=== PATIENT | female | born 1930 | race Asian ===

== ENCOUNTER 2018-05-25 13:32 | Inpatient (IN) | payer MEDICARE, OTHER ==
[~2018-05-25] VITALS: Ht 154.9 cm; Wt 60.9 kg
[~2018-05-25 13:32] MED LIST: AMLO2.5T2 PO; ASA5EC PO; ATOR10TA PO; DONE5TAB7 PO; FAMO20TA8 PO; GLIM4TAB2 PO; MECL-109 PO; MULT-1146 PO; OLME40TA11 PO
[2018-05-25] MEDS ORDERED: SODIUM CHLORIDE 0.9% 1,000 ML IV ONE (14:47)
[2018-05-25 16:30] LABS: CHLORIDE 105 mEq/L (98-107)
[2018-05-25 16:32] LABS: BASOPHILS % 0.5 % (0.0-2.0); EOSINOPHILS % 0.1 % (0.0-5.0); HEMATOCRIT. 33.7 % (36.0-48.0); HEMOGLOBIN. 11.2 g/dL (12.0-16.0); LYMPHOCYTES % 9.2 % (20.0-50.0); MEAN CORPUSCULAR VOLUME 99.8 fL (81.0-99.0); MEAN PLATELET VOLUME 7.7 fl (7.4-10.4); MONOCYTES % 11.7 % (2.0-8.0); NEUTROPHILS % 78.5 % (40.0-76.0); PLATELET 125 x1000/uL (130-400); RED BLOOD CELL COUNT 3.38 mill/uL (4.2-5.4); RED CELL DISTRIBUTION WIDTH 14.3 % (11.6-14.6)
[2018-05-25 16:34] LABS: INR 1.2; PROTHROMBIN TIME 11.6 sec (9.1-11.1)
[2018-05-25] MEDS ORDERED: ASPIRIN 81MG TABLET PO ONE (17:15)
[2018-05-25 18:18] LABS: CLARITY URINE CLEAR (CLEAR); COLOR URINE YELLOW (YELLOW); KETONES URINE NEGATIVE (NEGATIVE); LEUKOCYTE ESTERASE URINE NEGATIVE (NEGATIVE); NITRITE URINE NEGATIVE (NEGATIVE); OCCULT BLOOD URINE NEGATIVE (NEGATIVE); PH URINE 6.5 (4.5-8.0); PROTEIN URINE 1+ (NEGATIVE); SPECIFIC GRAVITY URINE 1.018 (1.005-1.030)
[2018-05-25 21:30] VITALS: BP 129/70
[2018-05-25] MEDS ORDERED: SODIUM CHLORIDE 10% FOR INH 15ML VIAL NEB INH SCH (21:45)
[2018-05-25] MEDS ORDERED: INSULIN GLARGINE UD 100 UNITS/ML SYR SUBCUT SCH ×2 (22:00→22:45)
[2018-05-25] MEDS ORDERED: METO25TA6 PO (22:32)
[2018-05-25] MEDS ORDERED: GUAIFENESIN/DM 600MG/30MG ER TAB 12HR PO PRN (23:00)
[2018-05-26 04:00] VITALS: BP 128/82
[2018-05-26] MEDS ORDERED: SODIUM CHLORIDE 10% FOR INH 15ML VIAL NEB INH SCH (04:00)
[2018-05-26] MEDS: METOPROLOL TARTRATE 50MG TABLET PO SCH ×2 (06:40→19:00)
[2018-05-26] MEDS: INSULIN LISPRO 100 UNITS/ML SUBCUT SCH ×6 (06:45→18:25)
[2018-05-26 06:51] LABS: CHLORIDE 100 mEq/L (98-107)
[2018-05-26] MEDS: BLOOD SUGAR DIAGNOSTIC STRIP TEST SCH ×4 (06:55→21:17)
[2018-05-26 07:06] LABS: HEMATOCRIT. 36.3 % (36.0-48.0); MEAN CORPUSCULAR HEMOGLOBIN 32.6 pg (28.0-32.0); MEAN CORPUSCULAR VOLUME 98.8 fL (81.0-99.0); PLATELET 127 x1000/uL (130-400); RED BLOOD CELL COUNT 3.68 mill/uL (4.2-5.4); RED CELL DISTRIBUTION WIDTH 14.2 % (11.6-14.6)
[2018-05-26 07:07] LABS: T4 FREE 1.68 ng/dL (0.76-1.46)
[2018-05-26] MEDS ORDERED: INSULIN LISPRO 100 UNITS/ML SUBCUT SCH ×2 (07:50)
[2018-05-26 08:00] VITALS: BP_SYST 131; BP_SYST 157; BP_DIAS 73; BP_DIAS 82
[2018-05-26] MEDS: GUAIFENESIN/DM 600MG/30MG ER TAB 12HR PO SCH ×2 (08:44→20:53)
[2018-05-26] MEDS: ASPIRIN 325MG EC TABLET PO SCH (08:44)
[2018-05-26] MEDS: CLOPIDOGREL 75MG TABLET PO SCH (08:44)
[2018-05-26] MEDS: LOSARTAN POTASSIUM 100 MG TABLET PO SCH (08:45)
[2018-05-26] MEDS: FAMOTIDINE 20MG TABLET PO SCH (08:45)
[2018-05-26] MEDS ORDERED: BLOOD SUGAR DIAGNOSTIC STRIP TEST SCH (09:00)
[2018-05-26] MEDS ORDERED: FAMOTIDINE 20MG TABLET PO SCH (09:00)
[2018-05-26 10:50] LABS: PLATELET ESTIMATE SLIGHTLY DECREASED
[2018-05-26 12:00] VITALS: BP 150/71
[2018-05-26] MEDS ORDERED: CLONIDINE 0.2MG TABLET PO PRN (15:15)
[2018-05-26] MEDS ORDERED: CLONIDINE 0.1MG TABLET PO PRN (15:15)
[2018-05-26 16:00] VITALS: BP 135/75
[2018-05-26 17:21] LABS: ETHANOL BLOOD < 10 mg/dL
[2018-05-26 17:26] LABS: T4 FREE 1.52 ng/dL (0.76-1.46)
[2018-05-26 17:37] LABS: FOLIC ACID (FOLATE) SERUM >20 ng/mL ng/mL (>5.38)
[2018-05-26 17:48] LABS: VITAMIN B12 SERUM 1677 pg/mL (211-911)
[2018-05-26 20:00] VITALS: BP 156/81
[2018-05-26] MEDS: ATORVASTATIN CALCIUM 10MG TABLET PO SCH (20:54)
[2018-05-26] MEDS ORDERED: ATORVASTATIN CALCIUM 10MG TABLET PO SCH (21:00)
[2018-05-26] MEDS ORDERED: INSULIN GLARGINE UD 100 UNITS/ML SYR SUBCUT SCH (22:00)
[2018-05-26 22:49] LABS: *AMPHETAMINES SCREEN URINE NEGATIVE (NEGATIVE); *BARBITURATES SCREEN URINE NEGATIVE (NEGATIVE); *BENZODIAZEPINES SCREEN URINE NEGATIVE (NEGATIVE); *COCAINE SCREEN URINE NEGATIVE (NEGATIVE); METHADONE URINE SCREEN NEGATIVE (NEGATIVE); OPIATES URINE SCREEN NEGATIVE (NEGATIVE)
[2018-05-26] MEDS: INSULIN GLARGINE UD 100 UNITS/ML SYR SUBCUT SCH (22:49)
[2018-05-26 22:50] LABS: CANNABINOID URINE SCREEN NEGATIVE (NEGATIVE); PHENCYCLIDINE URINE SCREEN NEGATIVE (NEGATIVE)
[2018-05-27] VITALS: BP 127/75
[2018-05-27 04:00] VITALS: BP 123/74
[2018-05-27] MEDS: METOPROLOL TARTRATE 50MG TABLET PO SCH ×2 (05:19→17:50)
[2018-05-27] MEDS: INSULIN LISPRO 100 UNITS/ML SUBCUT SCH ×6 (06:14→17:58)
[2018-05-27] MEDS: BLOOD SUGAR DIAGNOSTIC STRIP TEST SCH ×4 (06:14→21:00)
[2018-05-27] MEDS: IPRATROPIUM/ALBUTEROL 0.5-3(2.5)MG/3ML NEB HHN SCH ×2 (07:18→20:42)
[2018-05-27 07:40] LABS: CHLORIDE 100 mEq/L (98-107)
[2018-05-27 07:48] LABS: PHOSPHORUS 3.7 mg/dL (2.5-4.9)
[2018-05-27 08:00] VITALS: BP_SYST 115; BP_SYST 140; BP_DIAS 62; BP_DIAS 64
[2018-05-27 08:15] LABS: HEMATOCRIT. 37.1 % (36.0-48.0); HEMOGLOBIN. 12.1 g/dL (12.0-16.0); MEAN CORPUSCULAR HEMOGLOBIN 32.3 pg (28.0-32.0); MEAN CORPUSCULAR VOLUME 98.5 fL (81.0-99.0); PLATELET 117 x1000/uL (130-400); RED BLOOD CELL COUNT 3.76 mill/uL (4.2-5.4)
[2018-05-27] MEDS: LOSARTAN POTASSIUM 100 MG TABLET PO SCH (09:29)
[2018-05-27] MEDS: CLOPIDOGREL 75MG TABLET PO SCH (09:29)
[2018-05-27] MEDS: GUAIFENESIN/DM 600MG/30MG ER TAB 12HR PO SCH ×2 (09:29→20:28)
[2018-05-27] MEDS: FAMOTIDINE 20MG TABLET PO SCH (09:29)
[2018-05-27] MEDS: ASPIRIN 325MG EC TABLET PO SCH (09:29)
[2018-05-27 12:00] VITALS: BP 115/73
[2018-05-27 20:00] VITALS: BP_SYST 114; BP_SYST 91; BP_DIAS 58; BP_DIAS 69
[2018-05-27] MEDS: ATORVASTATIN CALCIUM 10MG TABLET PO SCH (20:27)
[2018-05-27] MEDS: INSULIN GLARGINE UD 100 UNITS/ML SYR SUBCUT SCH (22:02)
[2018-05-28] VITALS: BP_SYST 122; BP_SYST 124; BP_DIAS 71; BP_DIAS 76
[2018-05-28] MEDS: IPRATROPIUM/ALBUTEROL 0.5-3(2.5)MG/3ML NEB HHN SCH ×3 (01:08→22:45)
[2018-05-28 04:00] VITALS: BP 90/45
[2018-05-28] MEDS: METOPROLOL TARTRATE 50MG TABLET PO SCH (05:32)
[2018-05-28 06:20] LABS: PLATELET ESTIMATE SLIGHTLY DECREASED
[2018-05-28] MEDS: INSULIN LISPRO 100 UNITS/ML SUBCUT SCH ×6 (06:31→16:43)
[2018-05-28] MEDS: BLOOD SUGAR DIAGNOSTIC STRIP TEST SCH ×4 (06:31→21:28)
[2018-05-28 07:33] LABS: HEMATOCRIT. 36.4 % (36.0-48.0); HEMOGLOBIN. 11.9 g/dL (12.0-16.0); MEAN CORPUSCULAR HEMOGLOBIN 32.7 pg (28.0-32.0); MEAN CORPUSCULAR VOLUME 99.8 fL (81.0-99.0); PLATELET 101 x1000/uL (130-400); RED BLOOD CELL COUNT 3.64 mill/uL (4.2-5.4); RED CELL DISTRIBUTION WIDTH 13.9 % (11.6-14.6)
[2018-05-28 08:00] VITALS: BP_SYST 109; BP_SYST 121; BP_SYST 86; BP_DIAS 42; BP_DIAS 61; BP_DIAS 74
[2018-05-28] MEDS: GUAIFENESIN/DM 600MG/30MG ER TAB 12HR PO SCH ×2 (09:16→21:22)
[2018-05-28] MEDS: LOSARTAN POTASSIUM 100 MG TABLET PO SCH (09:16)
[2018-05-28] MEDS: ASPIRIN 325MG EC TABLET PO SCH (09:16)
[2018-05-28] MEDS: FAMOTIDINE 20MG TABLET PO SCH (09:16)
[2018-05-28] MEDS: CLOPIDOGREL 75MG TABLET PO SCH (09:16)
[2018-05-28 11:21] LABS: PLATELET ESTIMATE DECREASED
[2018-05-28 12:00] VITALS: BP 117/35
[2018-05-28] MEDS ORDERED: POTASSIUM CHLORIDE 20MEQ/PACKET PO SCH (13:00)
[2018-05-28] MEDS: LOSARTAN POTASSIUM 25 MG TABLET PO SCH (13:00)
[2018-05-28 16:00] VITALS: BP 99/41
[2018-05-28] MEDS: METOPROLOL TARTRATE 25MG TABLET PO SCH (18:00)
[2018-05-28] MEDS ORDERED: PIPERACILLIN/TAZ 3.375G PREMIX 50 ML IV SCH (19:00)
[2018-05-28 20:00] VITALS: BP 110/74
[2018-05-28] MEDS: ATORVASTATIN CALCIUM 10MG TABLET PO SCH (21:22)
[2018-05-28] MEDS: PIPERACILLIN/TAZ 2.25G PREMIX 50 ML IV SCH (21:28)
[2018-05-28] MEDS: INSULIN GLARGINE UD 100 UNITS/ML SYR SUBCUT SCH (21:52)
[2018-05-29] VITALS: BP_SYST 104; BP_SYST 88; BP_DIAS 43; BP_DIAS 50
[2018-05-29] MEDS: PIPERACILLIN/TAZ 2.25G PREMIX 50 ML IV SCH ×4 (02:29→21:08)
[2018-05-29 04:00] VITALS: BP 99/48
[2018-05-29] MEDS: METOPROLOL TARTRATE 25MG TABLET PO SCH ×2 (05:50→18:00)
[2018-05-29] MEDS: BLOOD SUGAR DIAGNOSTIC STRIP TEST SCH ×4 (06:23→21:09)
[2018-05-29] MEDS: INSULIN LISPRO 100 UNITS/ML SUBCUT SCH ×6 (06:24→16:45)
[2018-05-29 08:00] VITALS: BP 95/47
[2018-05-29] MEDS: GUAIFENESIN/DM 600MG/30MG ER TAB 12HR PO SCH ×2 (08:28→21:08)
[2018-05-29] MEDS: CLOPIDOGREL 75MG TABLET PO SCH (08:29)
[2018-05-29] MEDS: FAMOTIDINE 20MG TABLET PO SCH (08:29)
[2018-05-29] MEDS: LOSARTAN POTASSIUM 25 MG TABLET PO SCH (08:29)
[2018-05-29] MEDS: ASPIRIN 325MG EC TABLET PO SCH (08:29)
[2018-05-29] MEDS ORDERED: ACETAMINOPHEN 650MG/20.3ML UDC PO PRN (09:45)
[2018-05-29 10:12] LABS: BASOPHILS % 0.3 % (0.0-2.0); HEMOGLOBIN. 12.6 g/dL (12.0-16.0); LYMPHOCYTES % 26.8 % (20.0-50.0); MEAN CORPUSCULAR HEMOGLOBIN 32.6 pg (28.0-32.0); MEAN CORPUSCULAR VOLUME 98.5 fL (81.0-99.0); MEAN PLATELET VOLUME 9.2 fl (7.4-10.4); MONOCYTES % 12.9 % (2.0-8.0); PLATELET 88 x1000/uL (130-400); RED BLOOD CELL COUNT 3.86 mill/uL (4.2-5.4); RED CELL DISTRIBUTION WIDTH 14.5 % (11.6-14.6)
[2018-05-29 10:51] LABS: PHOSPHORUS 3.9 mg/dL (2.5-4.9)
[2018-05-29] MEDS: IPRATROPIUM/ALBUTEROL 0.5-3(2.5)MG/3ML NEB HHN SCH ×2 (11:51→21:55)
[2018-05-29 12:00] VITALS: BP 88/40
[2018-05-29 16:00] VITALS: BP 98/55
[2018-05-29 20:00] VITALS: BP 101/54
[2018-05-29] MEDS: ATORVASTATIN CALCIUM 10MG TABLET PO SCH (21:08)
[2018-05-29] MEDS: INSULIN GLARGINE UD 100 UNITS/ML SYR SUBCUT SCH (21:09)
[2018-05-30] VITALS: BP 101/60
[2018-05-30] MEDS: PIPERACILLIN/TAZ 2.25G PREMIX 50 ML IV SCH ×4 (01:56→20:34)
[2018-05-30 04:00] VITALS: BP 100/55
[2018-05-30] MEDS: METOPROLOL TARTRATE 25MG TABLET PO SCH (06:00)
[2018-05-30] MEDS: BLOOD SUGAR DIAGNOSTIC STRIP TEST SCH ×4 (06:04→21:00)
[2018-05-30] MEDS: INSULIN LISPRO 100 UNITS/ML SUBCUT SCH ×6 (06:05→16:45)
[2018-05-30 07:31] LABS: HEMATOCRIT. 36.1 % (36.0-48.0); HEMOGLOBIN. 11.8 g/dL (12.0-16.0); MEAN CORPUSCULAR HEMOGLOBIN 32.1 pg (28.0-32.0); MEAN CORPUSCULAR VOLUME 98.6 fL (81.0-99.0); PLATELET 84 x1000/uL (130-400); RED BLOOD CELL COUNT 3.66 mill/uL (4.2-5.4); RED CELL DISTRIBUTION WIDTH 14.3 % (11.6-14.6)
[2018-05-30 07:40] LABS: PHOSPHORUS 3.3 mg/dL (2.5-4.9)
[2018-05-30 08:00] VITALS: BP 106/61
[2018-05-30] MEDS: IPRATROPIUM/ALBUTEROL 0.5-3(2.5)MG/3ML NEB HHN SCH ×3 (08:00→21:35)
[2018-05-30] MEDS: LOSARTAN POTASSIUM 25 MG TABLET PO SCH (09:00)
[2018-05-30] MEDS: CLOPIDOGREL 75MG TABLET PO SCH (09:15)
[2018-05-30] MEDS: ASPIRIN 325MG EC TABLET PO SCH (09:15)
[2018-05-30] MEDS: FAMOTIDINE 20MG TABLET PO SCH (09:15)
[2018-05-30] MEDS: GUAIFENESIN/DM 600MG/30MG ER TAB 12HR PO SCH ×2 (09:15→22:55)
[2018-05-30 10:03] LABS: PLATELET ESTIMATE DECREASED
[2018-05-30 10:27] LABS: BG BASE EXCESS 1.3 mmol/L (-2.0-2.0); BG CARBOXYHEMOGLOBIN 0.3 % (0.5-1.5); BG DEOXYHEMOGLOBIN 4.8 % (0.0-5.0); BG FRACTION INSPIRED OXYGEN 28; BG HCO3 ACT 24.3 mmol/L (22.0-26.0); BG METHEMOGLOBIN 0.1 % (0.0-1.5); BG OXYGEN SATURATION 95.2 % (92.0-98.5); BG OXYHEMOGLOBIN 94.8 % (94.0-97.0); BG PCO2 33.4 mmHg (35.0-45.0); BG PO2 75.9 mmHg (75.0-100.0); BG SAMPLE SITE RIGHT RADIAL; BG TOTAL HEMOGLOBIN 12.3 g/dL (12.0-18.0); BG VENT MODE NASAL CANNULA
[2018-05-30] MEDS: CARVEDILOL 3.125 MG TABLET PO SCH ×2 (12:15→21:00)
[2018-05-30 20:00] VITALS: BP_SYST 101; BP_SYST 98; BP_DIAS 43; BP_DIAS 47
[2018-05-30] MEDS: ATORVASTATIN CALCIUM 10MG TABLET PO SCH (22:55)
[2018-05-30] MEDS: INSULIN GLARGINE UD 100 UNITS/ML SYR SUBCUT SCH (23:01)
[2018-05-31] VITALS: BP 111/63
[2018-05-31] MEDS: PIPERACILLIN/TAZ 2.25G PREMIX 50 ML IV SCH ×4 (02:56→21:37)
[2018-05-31 04:00] VITALS: BP 112/66
[2018-05-31] MEDS: BLOOD SUGAR DIAGNOSTIC STRIP TEST SCH ×4 (06:41→20:50)
[2018-05-31] MEDS: INSULIN LISPRO 100 UNITS/ML SUBCUT SCH ×5 (06:42→16:45)
[2018-05-31 07:20] LABS: BASOPHILS % 0.7 % (0.0-2.0); EOSINOPHILS % 0.2 % (0.0-5.0); HEMATOCRIT. 38.6 % (36.0-48.0); HEMOGLOBIN. 12.6 g/dL (12.0-16.0); MEAN CORPUSCULAR HEMOGLOBIN 32.2 pg (28.0-32.0); MEAN PLATELET VOLUME 9.8 fl (7.4-10.4); MONOCYTES % 14.3 % (2.0-8.0); NEUTROPHILS % 51.8 % (40.0-76.0); PLATELET 89 x1000/uL (130-400)
[2018-05-31 08:00] VITALS: BP 117/76
[2018-05-31] MEDS: IPRATROPIUM/ALBUTEROL 0.5-3(2.5)MG/3ML NEB HHN SCH ×3 (08:53→22:22)
[2018-05-31] MEDS: LOSARTAN POTASSIUM 25 MG TABLET PO SCH (09:00)
[2018-05-31] MEDS: CARVEDILOL 3.125 MG TABLET PO SCH ×2 (09:21→21:38)
[2018-05-31] MEDS: ASPIRIN 325MG EC TABLET PO SCH (09:21)
[2018-05-31] MEDS: FAMOTIDINE 20MG TABLET PO SCH (09:21)
[2018-05-31] MEDS: CLOPIDOGREL 75MG TABLET PO SCH (09:23)
[2018-05-31] MEDS: GUAIFENESIN/DM 600MG/30MG ER TAB 12HR PO SCH ×2 (11:09→21:37)
[2018-05-31] MEDS ORDERED: POTASSIUM CHLORIDE 20MEQ TABLET SR PO NR (11:30)
[2018-05-31 12:00] VITALS: BP 100/51
[2018-05-31 16:00] VITALS: BP 96/58
[2018-05-31 20:00] VITALS: BP 105/63
[2018-05-31] MEDS: INSULIN GLARGINE UD 100 UNITS/ML SYR SUBCUT SCH (20:59)
[2018-05-31] MEDS: ATORVASTATIN CALCIUM 10MG TABLET PO SCH (21:37)
[2018-06-01] VITALS: BP 140/86
[2018-06-01] MEDS: PIPERACILLIN/TAZ 2.25G PREMIX 50 ML IV SCH ×4 (02:39→21:42)
[2018-06-01 04:00] VITALS: BP 158/80
[2018-06-01] MEDS: INSULIN LISPRO 100 UNITS/ML SUBCUT SCH ×6 (06:45→16:45)
[2018-06-01] MEDS: BLOOD SUGAR DIAGNOSTIC STRIP TEST SCH ×4 (07:15→21:42)
[2018-06-01 08:00] VITALS: BP 152/83
[2018-06-01] MEDS: CLOPIDOGREL 75MG TABLET PO SCH (09:21)
[2018-06-01] MEDS: GUAIFENESIN/DM 600MG/30MG ER TAB 12HR PO SCH ×2 (09:21→21:42)
[2018-06-01] MEDS: ASPIRIN 325MG EC TABLET PO SCH (09:22)
[2018-06-01] MEDS: FAMOTIDINE 20MG TABLET PO SCH (09:22)
[2018-06-01] MEDS: LOSARTAN POTASSIUM 25 MG TABLET PO SCH (09:22)
[2018-06-01] MEDS: CARVEDILOL 3.125 MG TABLET PO SCH ×2 (09:23→21:42)
[2018-06-01 09:57] LABS: HEMATOCRIT. 38.3 % (36.0-48.0); HEMOGLOBIN. 12.3 g/dL (12.0-16.0); MEAN CORPUSCULAR HEMOGLOBIN 31.7 pg (28.0-32.0); MEAN CORPUSCULAR VOLUME 98.9 fL (81.0-99.0); PLATELET 101 x1000/uL (130-400); RED BLOOD CELL COUNT 3.87 mill/uL (4.2-5.4); RED CELL DISTRIBUTION WIDTH 14.2 % (11.6-14.6)
[2018-06-01] MEDS: IPRATROPIUM/ALBUTEROL 0.5-3(2.5)MG/3ML NEB HHN SCH ×3 (10:01→20:00)
[2018-06-01 10:07] LABS: CHLORIDE 108 mEq/L (98-107)
[2018-06-01 10:14] LABS: PHOSPHORUS 3.4 mg/dL (2.5-4.9)
[2018-06-01 12:00] VITALS: BP 138/79
[2018-06-01 16:00] VITALS: BP 133/76
[2018-06-01 20:00] VITALS: BP 138/77
[2018-06-01] MEDS: ATORVASTATIN CALCIUM 10MG TABLET PO SCH (21:42)
[2018-06-01] MEDS ORDERED: INSULIN GLARGINE UD 100 UNITS/ML SYR SUBCUT SCH ×2 (22:00)
[2018-06-02] VITALS: BP 138/78
[2018-06-02] MEDS: PIPERACILLIN/TAZ 2.25G PREMIX 50 ML IV SCH ×3 (02:45→15:33)
[2018-06-02 04:00] VITALS: BP 149/68
[2018-06-02] MEDS: INSULIN LISPRO 100 UNITS/ML SUBCUT SCH ×6 (06:23→18:09)
[2018-06-02] MEDS: BLOOD SUGAR DIAGNOSTIC STRIP TEST SCH ×3 (06:23→16:45)
[2018-06-02 07:11] LABS: HEMATOCRIT. 37.2 % (36.0-48.0); HEMOGLOBIN. 12.1 g/dL (12.0-16.0); MEAN CORPUSCULAR VOLUME 98.6 fL (81.0-99.0); PLATELET 104 x1000/uL (130-400); RED BLOOD CELL COUNT 3.78 mill/uL (4.2-5.4); RED CELL DISTRIBUTION WIDTH 14.2 % (11.6-14.6)
[2018-06-02 07:11] LABS: NUCLEATED RED BLOOD CELLS 1 /100 WBC; PLATELET ESTIMATE DECREASED
[2018-06-02 07:28] LABS: CHLORIDE 107 mEq/L (98-107)
[2018-06-02 07:33] LABS: PHOSPHORUS 3.1 mg/dL (2.5-4.9)
[2018-06-02] MEDS: IPRATROPIUM/ALBUTEROL 0.5-3(2.5)MG/3ML NEB HHN SCH ×2 (07:49→14:20)
[2018-06-02 08:00] VITALS: BP 142/78
[2018-06-02] MEDS: GUAIFENESIN/DM 600MG/30MG ER TAB 12HR PO SCH (08:18)
[2018-06-02] MEDS: CLOPIDOGREL 75MG TABLET PO SCH (08:18)
[2018-06-02] MEDS: LOSARTAN POTASSIUM 25 MG TABLET PO SCH (08:18)
[2018-06-02] MEDS: ASPIRIN 325MG EC TABLET PO SCH (08:18)
[2018-06-02] MEDS: FAMOTIDINE 20MG TABLET PO SCH (08:18)
[2018-06-02] MEDS: CARVEDILOL 3.125 MG TABLET PO SCH (08:18)
[2018-06-02 09:28] LABS: PLATELET ESTIMATE DECREASED
[2018-06-02 12:00] VITALS: BP 135/80
[2018-06-02 14:10] VITALS: BP 135/80
[2018-06-02 16:00] VITALS: BP 141/76
== END 2018-06-02 18:33 | DRG 871 ==
LOC: ER 13:32 → EDBEDREQ 17:46 → ENRESERV 19:35 → ER 21:03 → 5WST 23:42
PROVIDERS: ADMIT Internal Medicine Endocrinology, Diabetes & Metabolism; ATTEND Internal Medicine Endocrinology, Diabetes & Metabolism
PROC: 4A00X4Z Measurement of Central Nervous Electrical Activity, External Approach (ICD-10-PCS; principal; 2018-05-27)
DX: A41.9 Sepsis, unspecified organism (principal); G92 Toxic encephalopathy; J18.9 Pneumonia, unspecified organism; I21.4 Non-ST elevation (NSTEMI) myocardial infarction; J96.01 Acute respiratory failure with hypoxia; E46 Unspecified protein-calorie malnutrition; I42.9 Cardiomyopathy, unspecified; I47.1 Supraventricular tachycardia; I48.92 Unspecified atrial flutter; J44.0 Chronic obstructive pulmonary disease with (acute) lower respiratory infection; M48.56XA Collapsed vertebra, not elsewhere classified, lumbar region, initial encounter for fracture; E06.0 Acute thyroiditis; I82.622 Acute embolism and thrombosis of deep veins of left upper extremity; E03.9 Hypothyroidism, unspecified; E11.42 Type 2 diabetes mellitus with diabetic polyneuropathy; E11.65 Type 2 diabetes mellitus with hyperglycemia; E78.00 Pure hypercholesterolemia, unspecified; E78.5 Hyperlipidemia, unspecified; H81.10 Benign paroxysmal vertigo, unspecified ear; E11.51 Type 2 diabetes mellitus with diabetic peripheral angiopathy without gangrene; I65.21 Occlusion and stenosis of right carotid artery; K21.9 Gastro-esophageal reflux disease without esophagitis; M48.02 Spinal stenosis, cervical region; I48.91 Unspecified atrial fibrillation; D64.9 Anemia, unspecified; D69.59 Other secondary thrombocytopenia; E05.90 Thyrotoxicosis, unspecified without thyrotoxic crisis or storm; F03.90 Unspecified dementia, unspecified severity, without behavioral disturbance, psychotic disturbance, mood disturbance, and anxiety; E66.9 Obesity, unspecified; E83.51 Hypocalcemia; I10 Essential (primary) hypertension; I49.5 Sick sinus syndrome; G90.8 Other disorders of autonomic nervous system; H91.90 Unspecified hearing loss, unspecified ear; I25.10 Atherosclerotic heart disease of native coronary artery without angina pectoris; I27.20 Pulmonary hypertension, unspecified; M17.0 Bilateral primary osteoarthritis of knee; M31.6 Other giant cell arteritis; M47.816 Spondylosis without myelopathy or radiculopathy, lumbar region; M81.0 Age-related osteoporosis without current pathological fracture; N28.1 Cyst of kidney, acquired; Z82.49 Family history of ischemic heart disease and other diseases of the circulatory system; Z83.3 Family history of diabetes mellitus; Z85.6 Personal history of leukemia; Z86.73 Personal history of transient ischemic attack (TIA), and cerebral infarction without residual deficits; Z92.21 Personal history of antineoplastic chemotherapy; Z95.0 Presence of cardiac pacemaker; Z95.1 Presence of aortocoronary bypass graft; I25.2 Old myocardial infarction; Z99.81 Dependence on supplemental oxygen; Z79.82 Long term (current) use of aspirin; Z90.49 Acquired absence of other specified parts of digestive tract; Z68.25 Body mass index [BMI] 25.0-25.9, adult
CPT/HCPCS: 36415; 36600; 71045; 74178; 78014; 80048; 80305; 80320; 82088; 82140; 82330; 82375; 82533; 82550; 82607; 82746; 82805; 82962; 83036; 83605; 83615; 83735; 83880; 84100; 84134; 84439; 84443; 84481; 84484; 85007; 85027; 85651; 87070; 87804; 92610; 93005; 93306; 93880; 93970; 93971; 94640; 96360; 97116; 97162; 97166; 97530; 97535; 99285; A9516; J1815; J2543; J7030; J7040; J7131; J7620; G0480

== ENCOUNTER 2018-06-02 18:50 | Inpatient (IN) | payer MEDICARE, OTHER ==
[~2018-06-02] VITALS: Ht 154.9 cm; Wt 73.0 kg
[~2018-06-02 18:50] MED LIST changes: -AMLO2.5T2 PO; -DONE5TAB7 PO; -GLIM4TAB2 PO; -MECL-109 PO; +METO25TA6 PO
[2018-06-02 20:00] VITALS: BP 151/86
[2018-06-02] MEDS ORDERED: ACETAMINOPHEN 325MG TABLET PO PRN (21:15)
[2018-06-02] MEDS ORDERED: DEXTROSE 50% WATER 50ML SYRINGE IV PRN (21:15)
[2018-06-02] MEDS ORDERED: CLONIDINE 0.1MG TABLET PO PRN (22:00)
[2018-06-02] MEDS: ATORVASTATIN CALCIUM 10MG TABLET PO SCH (22:05)
[2018-06-02] MEDS: CARVEDILOL 6.25 MG TABLET PO SCH (22:06)
[2018-06-02] MEDS: INSULIN GLARGINE UD 100 UNITS/ML SYR SUBCUT SCH (23:07)
[2018-06-03] MEDS ORDERED: CLONIDINE 0.1MG TABLET PO SCH
[2018-06-03] MEDS: IPRATROPIUM/ALBUTEROL 0.5-3(2.5)MG/3ML NEB HHN SCH ×4 (01:42→19:55)
[2018-06-03] MEDS: BLOOD SUGAR DIAGNOSTIC STRIP TEST SCH ×4 (06:20→21:55)
[2018-06-03 06:33] LABS: CHLORIDE 106 mEq/L (98-107)
[2018-06-03 06:50] LABS: HEMOGLOBIN. 11.7 g/dL (12.0-16.0); MEAN CORPUSCULAR HEMOGLOBIN 32.1 pg (28.0-32.0); MEAN CORPUSCULAR VOLUME 98.6 fL (81.0-99.0); MEAN PLATELET VOLUME 9.1 fl (7.4-10.4); PLATELET 111 x1000/uL (130-400); RED BLOOD CELL COUNT 3.65 mill/uL (4.2-5.4); RED CELL DISTRIBUTION WIDTH 13.7 % (11.6-14.6)
[2018-06-03] MEDS: INSULIN LISPRO 100 UNITS/ML SUBCUT SCH ×3 (07:22→17:26)
[2018-06-03 08:00] VITALS: BP 129/76
[2018-06-03] MEDS ORDERED: INSULIN LISPRO 100 UNITS/ML SUBCUT SCH ×2 (09:00→13:00)
[2018-06-03] MEDS: LOSARTAN POTASSIUM 25 MG TABLET PO SCH (09:02)
[2018-06-03] MEDS: ASPIRIN 325MG EC TABLET PO SCH (09:02)
[2018-06-03] MEDS: CARVEDILOL 6.25 MG TABLET PO SCH (09:03)
[2018-06-03] MEDS: CLOPIDOGREL 75MG TABLET PO SCH (09:03)
[2018-06-03] MEDS: GUAIFENESIN 600MG ER TABLET PO SCH ×2 (09:03→21:55)
[2018-06-03] MEDS ORDERED: SODIUM CHLORIDE 10% FOR INH 15ML VIAL NEB INH NR (12:00)
[2018-06-03] MEDS: CARVEDILOL 12.5MG TABLET PO SCH ×2 (12:17→21:55)
[2018-06-03] MEDS: INSULIN LISPRO (CUSTOM DOSE) 100 UNITS/ML SUBCUT SCH ×2 (12:32→17:00)
[2018-06-03] MEDS ORDERED: BISACODYL 10MG SUPP PR NR (14:45)
[2018-06-03] MEDS: DOCUSATE SODIUM 100MG CAPSULE PO SCH (17:19)
[2018-06-03 20:00] VITALS: BP 133/70
[2018-06-03] MEDS: POLYETHYLENE GLYCOL 3350 (17GM) 1 DOSE PACK PO SCH (21:55)
[2018-06-03] MEDS: ATORVASTATIN CALCIUM 10MG TABLET PO SCH (21:55)
[2018-06-03] MEDS: INSULIN GLARGINE UD 100 UNITS/ML SYR SUBCUT SCH (22:01)
[2018-06-04] MEDS: IPRATROPIUM/ALBUTEROL 0.5-3(2.5)MG/3ML NEB HHN SCH ×3 (01:30→21:18)
[2018-06-04 04:58] LABS: PLATELET ESTIMATE DECREASED
[2018-06-04] MEDS: BLOOD SUGAR DIAGNOSTIC STRIP TEST SCH ×4 (05:58→21:13)
[2018-06-04] MEDS: INSULIN LISPRO (CUSTOM DOSE) 100 UNITS/ML SUBCUT SCH ×3 (05:59→17:00)
[2018-06-04] MEDS: INSULIN LISPRO 100 UNITS/ML SUBCUT SCH ×3 (06:18→17:37)
[2018-06-04 08:00] VITALS: BP 140/98
[2018-06-04] MEDS: LOSARTAN POTASSIUM 25 MG TABLET PO SCH (10:10)
[2018-06-04] MEDS: DOCUSATE SODIUM 100MG CAPSULE PO SCH ×2 (10:10→17:34)
[2018-06-04] MEDS: ASPIRIN 325MG EC TABLET PO SCH (10:10)
[2018-06-04] MEDS: GUAIFENESIN 600MG ER TABLET PO SCH ×2 (10:11→21:39)
[2018-06-04] MEDS: CARVEDILOL 12.5MG TABLET PO SCH ×2 (10:11→21:00)
[2018-06-04] MEDS: CLOPIDOGREL 75MG TABLET PO SCH (10:11)
[2018-06-04] MEDS: LACTULOSE 20G/30ML UDC PO SCH ×3 (13:30→21:39)
[2018-06-04] MEDS ORDERED: NA PHOS,M-B/NA PHOS,DI-BA ENEMA 118ML PR NR (13:30)
[2018-06-04 20:00] VITALS: BP 141/73
[2018-06-04] MEDS: POLYETHYLENE GLYCOL 3350 (17GM) 1 DOSE PACK PO SCH (21:39)
[2018-06-04] MEDS: ATORVASTATIN CALCIUM 10MG TABLET PO SCH (21:39)
[2018-06-04] MEDS: INSULIN GLARGINE UD 100 UNITS/ML SYR SUBCUT SCH (21:41)
[2018-06-05 01:26] LABS: CLARITY URINE CLOUDY (CLEAR); COLOR URINE DARK YELLOW (YELLOW); KETONES URINE TRACE (NEGATIVE); LEUKOCYTE ESTERASE URINE NEGATIVE (NEGATIVE); NITRITE URINE NEGATIVE (NEGATIVE); OCCULT BLOOD URINE NEGATIVE (NEGATIVE); PH URINE 5.5 (4.5-8.0); PROTEIN URINE 1+ (NEGATIVE); SPECIFIC GRAVITY URINE 1.033 (1.005-1.030); UROBILINOGEN URINE 0.2 E.U./dL (0.2-1.0)
[2018-06-05] MEDS: IPRATROPIUM/ALBUTEROL 0.5-3(2.5)MG/3ML NEB HHN SCH ×4 (02:01→21:44)
[2018-06-05] MEDS: BLOOD SUGAR DIAGNOSTIC STRIP TEST SCH ×4 (06:14→21:37)
[2018-06-05] MEDS: INSULIN LISPRO (CUSTOM DOSE) 100 UNITS/ML SUBCUT SCH ×3 (06:14→17:00)
[2018-06-05 07:36] LABS: CHLORIDE 107 mEq/L (98-107)
[2018-06-05 07:52] LABS: PHOSPHORUS 3.1 mg/dL (2.5-4.9)
[2018-06-05 07:53] LABS: TOTAL IRON BINDING CAPACITY 184 ug/dL (250-450)
[2018-06-05 07:54] LABS: CREATINE KINASE 39 IU/L (26-192)
[2018-06-05 08:00] VITALS: BP 158/73
[2018-06-05 08:07] LABS: FOLIC ACID (FOLATE) SERUM >20 ng/mL ng/mL (>5.38)
[2018-06-05 08:08] LABS: FERRITIN 651 ng/mL (10-291)
[2018-06-05] MEDS: GUAIFENESIN 600MG ER TABLET PO SCH ×2 (08:12→20:55)
[2018-06-05] MEDS: CLOPIDOGREL 75MG TABLET PO SCH (08:12)
[2018-06-05] MEDS: LOSARTAN POTASSIUM 25 MG TABLET PO SCH (08:12)
[2018-06-05] MEDS: DOCUSATE SODIUM 100MG CAPSULE PO SCH ×2 (08:12→17:31)
[2018-06-05] MEDS: ASPIRIN 325MG EC TABLET PO SCH (08:12)
[2018-06-05] MEDS: CARVEDILOL 12.5MG TABLET PO SCH ×2 (08:13→20:55)
[2018-06-05 08:18] LABS: VITAMIN B12 SERUM >2000 pg/mL pg/mL (211-911)
[2018-06-05] MEDS: INSULIN LISPRO 100 UNITS/ML SUBCUT SCH ×3 (08:26→17:35)
[2018-06-05 11:04] LABS: BASOPHILS % 0.9 % (0.0-2.0); EOSINOPHILS % 2.3 % (0.0-5.0); HEMATOCRIT. 39.3 % (36.0-48.0); HEMOGLOBIN. 12.8 g/dL (12.0-16.0); LYMPHOCYTES % 36.9 % (20.0-50.0); MEAN CORPUSCULAR HEMOGLOBIN 32.1 pg (28.0-32.0); MEAN CORPUSCULAR VOLUME 98.5 fL (81.0-99.0); MEAN PLATELET VOLUME 8.8 fl (7.4-10.4); MONOCYTES % 12.4 % (2.0-8.0); NEUTROPHILS % 47.5 % (40.0-76.0); PLATELET 143 x1000/uL (130-400); RED BLOOD CELL COUNT 3.99 mill/uL (4.2-5.4); RED CELL DISTRIBUTION WIDTH 13.8 % (11.6-14.6)
[2018-06-05] MEDS: LIDOCAINE 5% PATCH TOP SCH (15:00)
[2018-06-05] MEDS: NYSTATIN 100,000 UNITS/ML 5ML UDC SSW SCH ×2 (17:31→23:31)
[2018-06-05 20:00] VITALS: BP 129/71
[2018-06-05] MEDS: ATORVASTATIN CALCIUM 10MG TABLET PO SCH (20:55)
[2018-06-05] MEDS: POLYETHYLENE GLYCOL 3350 (17GM) 1 DOSE PACK PO SCH (20:55)
[2018-06-05] MEDS: INSULIN GLARGINE UD 100 UNITS/ML SYR SUBCUT SCH (21:41)
[2018-06-06] MEDS: IPRATROPIUM/ALBUTEROL 0.5-3(2.5)MG/3ML NEB HHN SCH ×4 (03:54→21:14)
[2018-06-06] MEDS: NYSTATIN 100,000 UNITS/ML 5ML UDC SSW SCH ×4 (05:53→23:41)
[2018-06-06] MEDS: LACTULOSE 20G/30ML UDC PO PRN (05:54)
[2018-06-06] MEDS: BLOOD SUGAR DIAGNOSTIC STRIP TEST SCH ×4 (06:25→21:36)
[2018-06-06] MEDS: INSULIN LISPRO (CUSTOM DOSE) 100 UNITS/ML SUBCUT SCH ×3 (06:25→17:00)
[2018-06-06] MEDS: INSULIN LISPRO 100 UNITS/ML SUBCUT SCH ×3 (07:49→17:39)
[2018-06-06 08:22] VITALS: BP 131/65
[2018-06-06] MEDS: ASPIRIN 325MG EC TABLET PO SCH (08:28)
[2018-06-06] MEDS: CLOPIDOGREL 75MG TABLET PO SCH (08:28)
[2018-06-06] MEDS: GUAIFENESIN 600MG ER TABLET PO SCH ×2 (08:28→21:31)
[2018-06-06] MEDS: DOCUSATE SODIUM 100MG CAPSULE PO SCH ×2 (08:29→17:35)
[2018-06-06] MEDS: LIDOCAINE 5% PATCH TOP SCH (08:29)
[2018-06-06] MEDS: LOSARTAN POTASSIUM 25 MG TABLET PO SCH (08:29)
[2018-06-06] MEDS: CARVEDILOL 12.5MG TABLET PO SCH ×2 (08:29→21:43)
[2018-06-06 20:00] VITALS: BP 99/55
[2018-06-06] MEDS: POLYETHYLENE GLYCOL 3350 (17GM) 1 DOSE PACK PO SCH (21:31)
[2018-06-06] MEDS: ATORVASTATIN CALCIUM 10MG TABLET PO SCH (21:36)
[2018-06-06] MEDS: INSULIN GLARGINE UD 100 UNITS/ML SYR SUBCUT SCH (22:14)
[2018-06-07] MEDS: IPRATROPIUM/ALBUTEROL 0.5-3(2.5)MG/3ML NEB HHN SCH ×3 (01:55→14:14)
[2018-06-07] MEDS: BLOOD SUGAR DIAGNOSTIC STRIP TEST SCH ×4 (06:03→21:59)
[2018-06-07] MEDS: NYSTATIN 100,000 UNITS/ML 5ML UDC SSW SCH ×4 (06:03→23:58)
[2018-06-07] MEDS: INSULIN LISPRO (CUSTOM DOSE) 100 UNITS/ML SUBCUT SCH ×3 (07:00→17:00)
[2018-06-07] MEDS: INSULIN LISPRO 100 UNITS/ML SUBCUT SCH ×3 (08:28→17:29)
[2018-06-07] MEDS: ASPIRIN 325MG EC TABLET PO SCH (08:30)
[2018-06-07] MEDS: CLOPIDOGREL 75MG TABLET PO SCH (08:30)
[2018-06-07] MEDS: GUAIFENESIN 600MG ER TABLET PO SCH ×2 (08:31→21:58)
[2018-06-07] MEDS: CARVEDILOL 12.5MG TABLET PO SCH ×2 (08:31→21:58)
[2018-06-07] MEDS: DOCUSATE SODIUM 100MG CAPSULE PO SCH ×2 (08:31→17:32)
[2018-06-07] MEDS: LIDOCAINE 5% PATCH TOP SCH (08:32)
[2018-06-07] MEDS: LOSARTAN POTASSIUM 25 MG TABLET PO SCH (08:32)
[2018-06-07 08:38] VITALS: BP 134/61
[2018-06-07 20:00] VITALS: BP 118/52
[2018-06-07] MEDS: ATORVASTATIN CALCIUM 10MG TABLET PO SCH (21:58)
[2018-06-07] MEDS: POLYETHYLENE GLYCOL 3350 (17GM) 1 DOSE PACK PO SCH (21:59)
[2018-06-07] MEDS: INSULIN GLARGINE UD 100 UNITS/ML SYR SUBCUT SCH (22:09)
[2018-06-08] MEDS: IPRATROPIUM/ALBUTEROL 0.5-3(2.5)MG/3ML NEB HHN SCH ×4 (02:26→21:27)
[2018-06-08] MEDS: NYSTATIN 100,000 UNITS/ML 5ML UDC SSW SCH ×4 (05:29→23:56)
[2018-06-08] MEDS: BLOOD SUGAR DIAGNOSTIC STRIP TEST SCH ×4 (05:43→21:10)
[2018-06-08] MEDS: INSULIN LISPRO 100 UNITS/ML SUBCUT SCH ×3 (06:49→17:42)
[2018-06-08] MEDS: INSULIN LISPRO (CUSTOM DOSE) 100 UNITS/ML SUBCUT SCH ×3 (06:49→16:35)
[2018-06-08 06:52] LABS: CHLORIDE 106 mEq/L (98-107)
[2018-06-08 07:27] LABS: BASOPHILS % 1.2 % (0.0-2.0); EOSINOPHILS % 3.4 % (0.0-5.0); HEMATOCRIT. 32.8 % (36.0-48.0); HEMOGLOBIN. 10.8 g/dL (12.0-16.0); LYMPHOCYTES % 32.4 % (20.0-50.0); MEAN CORPUSCULAR VOLUME 100.4 fL (81.0-99.0); MEAN PLATELET VOLUME 8.5 fl (7.4-10.4); MONOCYTES % 12.2 % (2.0-8.0); NEUTROPHILS % 50.8 % (40.0-76.0); PLATELET 135 x1000/uL (130-400); RED BLOOD CELL COUNT 3.27 mill/uL (4.2-5.4)
[2018-06-08] MEDS: ASPIRIN 325MG EC TABLET PO SCH (08:22)
[2018-06-08] MEDS: CLOPIDOGREL 75MG TABLET PO SCH (08:22)
[2018-06-08] MEDS: LOSARTAN POTASSIUM 25 MG TABLET PO SCH (08:22)
[2018-06-08] MEDS: DOCUSATE SODIUM 100MG CAPSULE PO SCH ×2 (08:22→17:06)
[2018-06-08] MEDS: GUAIFENESIN 600MG ER TABLET PO SCH ×2 (08:22→20:30)
[2018-06-08] MEDS: CARVEDILOL 12.5MG TABLET PO SCH ×2 (08:22→20:31)
[2018-06-08] MEDS: LIDOCAINE 5% PATCH TOP SCH (08:23)
[2018-06-08 08:55] VITALS: BP 124/72
[2018-06-08] MEDS ORDERED: BISACODYL 10MG SUPP PR NR (11:11)
[2018-06-08] MEDS: LACTULOSE 20G/30ML UDC PO SCH ×2 (13:29→17:06)
[2018-06-08 20:00] VITALS: BP 96/42
[2018-06-08] MEDS: ATORVASTATIN CALCIUM 10MG TABLET PO SCH (20:30)
[2018-06-08] MEDS: POLYETHYLENE GLYCOL 3350 (17GM) 1 DOSE PACK PO SCH (20:31)
[2018-06-08] MEDS: INSULIN GLARGINE UD 100 UNITS/ML SYR SUBCUT SCH (21:34)
[2018-06-09] MEDS: IPRATROPIUM/ALBUTEROL 0.5-3(2.5)MG/3ML NEB HHN SCH ×4 (02:55→21:22)
[2018-06-09] MEDS: NYSTATIN 100,000 UNITS/ML 5ML UDC SSW SCH ×3 (05:23→17:17)
[2018-06-09] MEDS: BLOOD SUGAR DIAGNOSTIC STRIP TEST SCH ×3 (06:20→16:28)
[2018-06-09] MEDS: INSULIN LISPRO (CUSTOM DOSE) 100 UNITS/ML SUBCUT SCH ×3 (06:21→16:30)
[2018-06-09 08:00] VITALS: BP 116/62
[2018-06-09] MEDS: GUAIFENESIN 600MG ER TABLET PO SCH (08:48)
[2018-06-09] MEDS: CLOPIDOGREL 75MG TABLET PO SCH (08:48)
[2018-06-09] MEDS: CARVEDILOL 12.5MG TABLET PO SCH (08:48)
[2018-06-09] MEDS: ASPIRIN 325MG EC TABLET PO SCH (08:48)
[2018-06-09] MEDS: DOCUSATE SODIUM 100MG CAPSULE PO SCH ×2 (08:48→16:26)
[2018-06-09] MEDS: LOSARTAN POTASSIUM 25 MG TABLET PO SCH (08:48)
[2018-06-09] MEDS: INSULIN LISPRO 100 UNITS/ML SUBCUT SCH ×3 (08:57→17:18)
[2018-06-09] MEDS: LIDOCAINE 5% PATCH TOP SCH (08:57)
[2018-06-09 20:00] VITALS: BP 113/58
[2018-06-10] MEDS: ATORVASTATIN CALCIUM 10MG TABLET PO SCH ×2 (01:48→20:23)
[2018-06-10] MEDS: CARVEDILOL 12.5MG TABLET PO SCH ×3 (01:53→20:23)
[2018-06-10] MEDS: NYSTATIN 100,000 UNITS/ML 5ML UDC SSW SCH ×4 (01:53→17:03)
[2018-06-10] MEDS: POLYETHYLENE GLYCOL 3350 (17GM) 1 DOSE PACK PO SCH ×2 (01:53→20:22)
[2018-06-10] MEDS: BLOOD SUGAR DIAGNOSTIC STRIP TEST SCH ×5 (01:55→21:20)
[2018-06-10] MEDS: GUAIFENESIN 600MG ER TABLET PO SCH ×3 (02:04→20:22)
[2018-06-10] MEDS: INSULIN GLARGINE UD 100 UNITS/ML SYR SUBCUT SCH ×2 (02:07→21:21)
[2018-06-10] MEDS: IPRATROPIUM/ALBUTEROL 0.5-3(2.5)MG/3ML NEB HHN SCH ×4 (03:12→21:20)
[2018-06-10 06:27] LABS: EOSINOPHILS % 3.1 % (0.0-5.0); HEMATOCRIT. 34.4 % (36.0-48.0); HEMOGLOBIN. 11.2 g/dL (12.0-16.0); LYMPHOCYTES % 28.4 % (20.0-50.0); MEAN CORPUSCULAR HEMOGLOBIN 32.5 pg (28.0-32.0); MEAN CORPUSCULAR VOLUME 100.2 fL (81.0-99.0); MEAN PLATELET VOLUME 8.2 fl (7.4-10.4); NEUTROPHILS % 54.5 % (40.0-76.0); PLATELET 125 x1000/uL (130-400); RED BLOOD CELL COUNT 3.44 mill/uL (4.2-5.4); RED CELL DISTRIBUTION WIDTH 14.6 % (11.6-14.6)
[2018-06-10 06:39] LABS: CHLORIDE 107 mEq/L (98-107)
[2018-06-10] MEDS: INSULIN LISPRO 100 UNITS/ML SUBCUT SCH ×3 (07:00→17:00)
[2018-06-10] MEDS: INSULIN LISPRO (CUSTOM DOSE) 100 UNITS/ML SUBCUT SCH ×3 (07:00→17:00)
[2018-06-10 08:00] VITALS: BP 137/70
[2018-06-10] MEDS: ASPIRIN 325MG EC TABLET PO SCH (09:41)
[2018-06-10] MEDS: CLOPIDOGREL 75MG TABLET PO SCH (09:42)
[2018-06-10] MEDS: LIDOCAINE 5% PATCH TOP SCH (09:43)
[2018-06-10 20:00] VITALS: BP 132/70
[2018-06-11] MEDS: NYSTATIN 100,000 UNITS/ML 5ML UDC SSW SCH ×5 (00:01→23:33)
[2018-06-11] MEDS: IPRATROPIUM/ALBUTEROL 0.5-3(2.5)MG/3ML NEB HHN SCH ×4 (02:30→21:10)
[2018-06-11 04:11] LABS: 25-HYDROXY VITAMIN D3 24 ng/mL (.)
[2018-06-11] MEDS: INSULIN LISPRO (CUSTOM DOSE) 100 UNITS/ML SUBCUT SCH ×3 (06:29→17:00)
[2018-06-11] MEDS: BLOOD SUGAR DIAGNOSTIC STRIP TEST SCH ×4 (06:29→21:33)
[2018-06-11 08:00] VITALS: BP 135/67
[2018-06-11] MEDS: INSULIN LISPRO 100 UNITS/ML SUBCUT SCH ×3 (09:23→17:00)
[2018-06-11] MEDS: CLOPIDOGREL 75MG TABLET PO SCH (09:40)
[2018-06-11] MEDS: ASPIRIN 325MG EC TABLET PO SCH (09:40)
[2018-06-11] MEDS: GUAIFENESIN 600MG ER TABLET PO SCH ×2 (09:40→20:51)
[2018-06-11] MEDS: CARVEDILOL 12.5MG TABLET PO SCH ×2 (09:40→20:51)
[2018-06-11] MEDS: LIDOCAINE 5% PATCH TOP SCH (09:41)
[2018-06-11] MEDS ORDERED: ERGOCALCIFEROL 50000UNITS CAPSULE PO SCH (18:45)
[2018-06-11 20:29] VITALS: BP 102/52
[2018-06-11] MEDS: ATORVASTATIN CALCIUM 10MG TABLET PO SCH (20:51)
[2018-06-11] MEDS: POLYETHYLENE GLYCOL 3350 (17GM) 1 DOSE PACK PO SCH (20:52)
[2018-06-11] MEDS: INSULIN GLARGINE UD 100 UNITS/ML SYR SUBCUT SCH (21:35)
[2018-06-12] MEDS: IPRATROPIUM/ALBUTEROL 0.5-3(2.5)MG/3ML NEB HHN SCH ×4 (01:39→21:06)
[2018-06-12] MEDS: NYSTATIN 100,000 UNITS/ML 5ML UDC SSW SCH ×3 (05:02→17:55)
[2018-06-12] MEDS: LACTULOSE 20G/30ML UDC PO PRN (05:02)
[2018-06-12 06:23] LABS: BASOPHILS % 0.5 % (0.0-2.0); EOSINOPHILS % 0.9 % (0.0-5.0); HEMOGLOBIN. 12.4 g/dL (12.0-16.0); LYMPHOCYTES % 13.1 % (20.0-50.0); MEAN CORPUSCULAR VOLUME 98.6 fL (81.0-99.0); MEAN PLATELET VOLUME 8.6 fl (7.4-10.4); NEUTROPHILS % 76.5 % (40.0-76.0); PLATELET 132 x1000/uL (130-400); RED BLOOD CELL COUNT 3.76 mill/uL (4.2-5.4); RED CELL DISTRIBUTION WIDTH 14.3 % (11.6-14.6)
[2018-06-12] MEDS: INSULIN LISPRO (CUSTOM DOSE) 100 UNITS/ML SUBCUT SCH ×3 (06:25→17:26)
[2018-06-12] MEDS: BLOOD SUGAR DIAGNOSTIC STRIP TEST SCH ×4 (06:25→21:00)
[2018-06-12] MEDS: INSULIN LISPRO 100 UNITS/ML SUBCUT SCH ×3 (06:49→17:25)
[2018-06-12 08:00] VITALS: BP 136/89
[2018-06-12] MEDS: GUAIFENESIN 600MG ER TABLET PO SCH ×2 (08:38→22:42)
[2018-06-12] MEDS: ASPIRIN 325MG EC TABLET PO SCH (08:38)
[2018-06-12] MEDS: CLOPIDOGREL 75MG TABLET PO SCH (08:38)
[2018-06-12] MEDS: CARVEDILOL 12.5MG TABLET PO SCH ×2 (08:39→21:00)
[2018-06-12] MEDS: LIDOCAINE 5% PATCH TOP SCH (08:40)
[2018-06-12] MEDS: DOCUSATE SODIUM 100MG CAPSULE PO SCH ×2 (11:25→17:00)
[2018-06-12 20:00] VITALS: BP 97/57
[2018-06-12] MEDS: ATORVASTATIN CALCIUM 10MG TABLET PO SCH (22:41)
[2018-06-12] MEDS: POLYETHYLENE GLYCOL 3350 (17GM) 1 DOSE PACK PO SCH (22:42)
[2018-06-12] MEDS: INSULIN GLARGINE UD 100 UNITS/ML SYR SUBCUT SCH (22:57)
[2018-06-13] MEDS: IPRATROPIUM/ALBUTEROL 0.5-3(2.5)MG/3ML NEB HHN SCH ×3 (02:01→20:28)
[2018-06-13 06:47] LABS: BASOPHILS % 0.4 % (0.0-2.0); EOSINOPHILS % 0.8 % (0.0-5.0); HEMATOCRIT. 33.3 % (36.0-48.0); HEMOGLOBIN. 11.1 g/dL (12.0-16.0); LYMPHOCYTES % 21.8 % (20.0-50.0); MEAN CORPUSCULAR HEMOGLOBIN 32.9 pg (28.0-32.0); MEAN CORPUSCULAR VOLUME 98.6 fL (81.0-99.0); MEAN PLATELET VOLUME 8.6 fl (7.4-10.4); MONOCYTES % 13.1 % (2.0-8.0); NEUTROPHILS % 63.9 % (40.0-76.0); PLATELET 101 x1000/uL (130-400); RED BLOOD CELL COUNT 3.38 mill/uL (4.2-5.4); RED CELL DISTRIBUTION WIDTH 14.8 % (11.6-14.6)
[2018-06-13] MEDS: BLOOD SUGAR DIAGNOSTIC STRIP TEST SCH ×4 (06:53→21:00)
[2018-06-13] MEDS: INSULIN LISPRO 100 UNITS/ML SUBCUT SCH ×3 (06:57→17:23)
[2018-06-13] MEDS: INSULIN LISPRO (CUSTOM DOSE) 100 UNITS/ML SUBCUT SCH ×3 (06:57→17:00)
[2018-06-13 08:00] VITALS: BP 103/48
[2018-06-13] MEDS: CARVEDILOL 12.5MG TABLET PO SCH ×2 (08:10→21:00)
[2018-06-13] MEDS: GUAIFENESIN 600MG ER TABLET PO SCH ×2 (08:53→21:00)
[2018-06-13] MEDS: CLOPIDOGREL 75MG TABLET PO SCH (08:53)
[2018-06-13] MEDS: ASPIRIN 325MG EC TABLET PO SCH (08:53)
[2018-06-13] MEDS: DOCUSATE SODIUM 100MG CAPSULE PO SCH ×2 (08:53→16:46)
[2018-06-13] MEDS: LIDOCAINE 5% PATCH TOP SCH (08:54)
[2018-06-13 20:00] VITALS: BP 105/55
[2018-06-13] MEDS: ATORVASTATIN CALCIUM 10MG TABLET PO SCH (21:00)
[2018-06-13] MEDS: POLYETHYLENE GLYCOL 3350 (17GM) 1 DOSE PACK PO SCH (21:30)
[2018-06-13] MEDS: INSULIN GLARGINE UD 100 UNITS/ML SYR SUBCUT SCH (23:08)
[2018-06-14] MEDS: IPRATROPIUM/ALBUTEROL 0.5-3(2.5)MG/3ML NEB HHN SCH ×2 (01:04→09:08)
[2018-06-14] MEDS: INSULIN LISPRO (CUSTOM DOSE) 100 UNITS/ML SUBCUT SCH (06:28)
[2018-06-14] MEDS: BLOOD SUGAR DIAGNOSTIC STRIP TEST SCH ×2 (06:28→11:30)
[2018-06-14] MEDS: INSULIN LISPRO 100 UNITS/ML SUBCUT SCH (06:54)
[2018-06-14 08:00] VITALS: BP 106/53
[2018-06-14] MEDS: CARVEDILOL 12.5MG TABLET PO SCH (09:00)
[2018-06-14] MEDS: CLOPIDOGREL 75MG TABLET PO SCH (10:32)
[2018-06-14] MEDS: DOCUSATE SODIUM 100MG CAPSULE PO SCH (10:33)
[2018-06-14] MEDS: GUAIFENESIN 600MG ER TABLET PO SCH (10:33)
[2018-06-14] MEDS: ASPIRIN 325MG EC TABLET PO SCH (10:33)
[2018-06-14] MEDS: LIDOCAINE 5% PATCH TOP SCH (10:34)
[2018-06-14 12:38] VITALS: BP 109/64
[2018-06-14 17:06] LABS: QFT TB GOLD PLUS Positive (Negative); QFT TB1 AG VALUE 0.41 IU/mL (.)
== END 2018-06-14 13:00 | disposition home health service (06) | DRG 91 ==
PROVIDERS: ADMIT Physical Medicine & Rehabilitation Spinal Cord Injury Medicine; ATTEND Internal Medicine Endocrinology, Diabetes & Metabolism
DX: G92 Toxic encephalopathy (principal); I21.4 Non-ST elevation (NSTEMI) myocardial infarction; A41.9 Sepsis, unspecified organism; R65.20 Severe sepsis without septic shock; J18.9 Pneumonia, unspecified organism; I42.9 Cardiomyopathy, unspecified; D61.818 Other pancytopenia; E06.0 Acute thyroiditis; I48.92 Unspecified atrial flutter; E46 Unspecified protein-calorie malnutrition; Z95.0 Presence of cardiac pacemaker; R53.1 Weakness; E11.42 Type 2 diabetes mellitus with diabetic polyneuropathy; I10 Essential (primary) hypertension; R13.10 Dysphagia, unspecified; Z86.73 Personal history of transient ischemic attack (TIA), and cerebral infarction without residual deficits; E78.00 Pure hypercholesterolemia, unspecified; Z92.21 Personal history of antineoplastic chemotherapy; I48.91 Unspecified atrial fibrillation; E11.65 Type 2 diabetes mellitus with hyperglycemia; E83.51 Hypocalcemia; E03.9 Hypothyroidism, unspecified; E78.5 Hyperlipidemia, unspecified; I25.10 Atherosclerotic heart disease of native coronary artery without angina pectoris; I25.2 Old myocardial infarction; K21.9 Gastro-esophageal reflux disease without esophagitis; Z85.6 Personal history of leukemia; N28.1 Cyst of kidney, acquired; M17.0 Bilateral primary osteoarthritis of knee
CPT/HCPCS: 36415; 71045; 71250; 72220; 74018; 80048; 82140; 82306; 82550; 82607; 82728; 82746; 82962; 83540; 83550; 83735; 84100; 84134; 84439; 84443; 85651; 86480; 86635; 92523; 92610; 93970; 94640; 97110; 97116; 97162; 97166; 97530; 97535; A6261; J1815; J7131; J7620

== ENCOUNTER → 2018-08-12 | Outpatient (CLI) | payer MEDICARE, OTHER | END | disposition home or self-care (01) | LOC: US 08:22 | PROVIDERS: ATTEND Internal Medicine Gastroenterology | DX: R10.13 Epigastric pain (principal) | CPT/HCPCS: 76700 ==

== ENCOUNTER → 2018-12-12 | Outpatient (CLI) | payer MEDICARE, OTHER ==
[~2018-12-12] MED LIST changes: -ASA5EC PO; +ASPI325T85 PO; +IOHEXOL-12MG/ML 500 ML ORAL.CONC PO ONE; +IOHEXOL-300 100 ML BOTTLE ONE
== END | disposition home or self-care (01) ==
LOC: CT 08:51
PROVIDERS: ATTEND Internal Medicine Gastroenterology
DX: K76.0 Fatty (change of) liver, not elsewhere classified (principal); G31.9 Degenerative disease of nervous system, unspecified; I05.9 Rheumatic mitral valve disease, unspecified; M48.56XA Collapsed vertebra, not elsewhere classified, lumbar region, initial encounter for fracture; M85.89 Other specified disorders of bone density and structure, multiple sites; J98.11 Atelectasis; I11.9 Hypertensive heart disease without heart failure; J98.4 Other disorders of lung; Z95.810 Presence of automatic (implantable) cardiac defibrillator; Z90.49 Acquired absence of other specified parts of digestive tract
CPT/HCPCS: 74160; J7517; Q9967

== ENCOUNTER 2019-05-14 12:54 | Inpatient (IN) | payer MEDICARE, OTHER ==
[~2019-05-14] VITALS: Ht 154.9 cm; Wt 50.2 kg
[~2019-05-14 12:54] MED LIST changes: -IOHEXOL-12MG/ML 500 ML ORAL.CONC PO ONE; -IOHEXOL-300 100 ML BOTTLE ONE
[2019-05-14 13:48] VITALS: BP 134/86
[2019-05-14] MEDS ORDERED: PROT40 PO (14:07)
[2019-05-14] MEDS ORDERED: CARV12.545 PO (14:13)
[2019-05-14] MEDS ORDERED: INSLIS SUBCUT (14:19)
[2019-05-14] MEDS ORDERED: INSU100I28 SQ (14:22)
[2019-05-14] MEDS ORDERED: DEXTROSE 50% WATER 50ML SYRINGE IV PRN (15:00)
[2019-05-14 16:00] VITALS: BP 123/68
[2019-05-14] MEDS: BLOOD SUGAR DIAGNOSTIC STRIP TEST SCH ×2 (16:14→21:01)
[2019-05-14 17:42] VITALS: BP 119/65
[2019-05-14] MEDS: INSULIN LISPRO 100 UNITS/ML SUBCUT SCH ×2 (17:52→21:00)
[2019-05-14 20:00] VITALS: BP 140/62
[2019-05-14 21:44] LABS: BASOPHILS % 1.1 % (0.0-2.0); EOSINOPHILS % 2.9 % (0.0-5.0); HEMATOCRIT. 37.2 % (36.0-48.0); HEMOGLOBIN. 12.3 g/dL (12.0-16.0); LYMPHOCYTES % 35.8 % (20.0-50.0); MEAN CORPUSCULAR HEMOGLOBIN 31.6 pg (28.0-32.0); MEAN CORPUSCULAR VOLUME 95.5 fL (81.0-99.0); MEAN PLATELET VOLUME 8.4 fl (7.4-10.4); MONOCYTES % 10.8 % (2.0-8.0); NEUTROPHILS % 49.4 % (40.0-76.0); PLATELET 109 x1000/uL (130-400); RED BLOOD CELL COUNT 3.89 mill/uL (4.2-5.4); RED CELL DISTRIBUTION WIDTH 14.5 % (11.6-14.6)
[2019-05-14 21:53] LABS: CHLORIDE 104 mEq/L (98-107)
[2019-05-14 22:00] VITALS: BP 155/143
[2019-05-14] MEDS: FAMOTIDINE 20MG TABLET PO SCH (23:45)
[2019-05-14] MEDS: ATORVASTATIN CALCIUM 10MG TABLET PO SCH (23:45)
[2019-05-14] MEDS: POTASSIUM CHLORIDE 20MEQ TABLET SR PO NR (23:45)
[2019-05-15] VITALS (13 sets, daily range): BP systolic 136–206; BP diastolic 48–131
[2019-05-15] MEDS: ATORVASTATIN CALCIUM 10MG TABLET PO SCH ×2 (01:00→20:26)
[2019-05-15] MEDS: POTASSIUM CHLORIDE 20MEQ TABLET SR PO NR (01:00)
[2019-05-15] MEDS: FAMOTIDINE 20MG TABLET PO SCH ×2 (01:01→20:26)
[2019-05-15 02:06] LABS: CLARITY URINE CLEAR (CLEAR); COLOR URINE YELLOW (YELLOW); KETONES URINE NEGATIVE (NEGATIVE); LEUKOCYTE ESTERASE URINE NEGATIVE (NEGATIVE); NITRITE URINE NEGATIVE (NEGATIVE); OCCULT BLOOD URINE TRACE (NEGATIVE); PROTEIN URINE 2+ (NEGATIVE); SPECIFIC GRAVITY URINE 1.012 (1.005-1.030)
[2019-05-15] MEDS: BLOOD SUGAR DIAGNOSTIC STRIP TEST SCH ×4 (05:25→20:29)
[2019-05-15] MEDS: INSULIN LISPRO 100 UNITS/ML SUBCUT SCH ×4 (05:25→20:51)
[2019-05-15] MEDS ORDERED: LOSARTAN POTASSIUM 25 MG TABLET PO SCH (09:00)
[2019-05-15] MEDS ORDERED: PROPOFOL 10MG/ML 100ML 100 ML IV ONE (09:54)
[2019-05-15] MEDS ORDERED: INSULIN GLARGINE UD 100 UNITS/ML SYR SUBCUT SCH (10:00)
[2019-05-15] MEDS: INSULIN GLARGINE UD 100 UNITS/ML SYR SUBCUT SCH (10:00)
[2019-05-15] MEDS ORDERED: MIDAZOLAM HCL 5 MG/5 ML VIAL ONE (10:10)
[2019-05-15] MEDS ORDERED: LIDOCAINE HCL 1% 20ML VIAL (Pyxis) INJ ONE (10:13)
[2019-05-15] MEDS ORDERED: GENTAMICIN SULF 40MG/ML 2ML VIAL ONE (10:13)
[2019-05-15] MEDS ORDERED: GENTAMICIN/NS IRRIGATION 500 ML IR ONE (10:14)
[2019-05-15] MEDS ORDERED: IODIXANOL 320MG/ML 100 ML BOTTLE IV ONE (10:14)
[2019-05-15] MEDS ORDERED: CEFAZOLIN SODIUM 1000MG/VIAL ONE (10:20)
[2019-05-15] MEDS ORDERED: SUCCINYLCHOLINE CHLORIDE 200MG/10ML IV ONE (10:20)
[2019-05-15] MEDS ORDERED: HYDROCODONE/ACETAMINOPHEN 5/325MG TABLET PO PRN (12:45)
[2019-05-15] MEDS ORDERED: SODIUM CHLORIDE 0.9% 1,000 ML IV ONE (12:55)
[2019-05-15] MEDS ORDERED: HYDROMORPHONE HCL/PF 2MG/ML CPJ IV PRN (13:00)
[2019-05-15] MEDS ORDERED: MORPHINE SULFATE 2 MG/ML CPJ (NOT FOR IM USE) IV PRN (13:00)
[2019-05-15] MEDS ORDERED: ONDANSETRON HCL 4MG/2ML INJ IV PRN (13:00)
[2019-05-15] MEDS ORDERED: LORAZEPAM 2MG/ML CPJ IV PRN (14:45)
[2019-05-15] MEDS ORDERED: HYDRALAZINE 20MG/ML VIAL IV PRN (18:45)
[2019-05-15] MEDS: CARVEDILOL 3.125 MG TABLET PO SCH (22:28)
[2019-05-16] VITALS (8 sets, daily range): BP systolic 144–156; BP diastolic 63–91
[2019-05-16] MEDS: BLOOD SUGAR DIAGNOSTIC STRIP TEST SCH ×2 (05:56→12:47)
[2019-05-16] MEDS: INSULIN LISPRO 100 UNITS/ML SUBCUT SCH ×2 (07:20→12:50)
[2019-05-16 08:20] LABS: BASOPHILS % 0.7 % (0.0-2.0); EOSINOPHILS % 0.3 % (0.0-5.0); HEMATOCRIT. 39.2 % (36.0-48.0); HEMOGLOBIN. 13.1 g/dL (12.0-16.0); LYMPHOCYTES % 23.6 % (20.0-50.0); MEAN CORPUSCULAR HEMOGLOBIN 31.7 pg (28.0-32.0); MEAN CORPUSCULAR VOLUME 94.9 fL (81.0-99.0); MEAN PLATELET VOLUME 9.2 fl (7.4-10.4); MONOCYTES % 8.6 % (2.0-8.0); NEUTROPHILS % 66.8 % (40.0-76.0); PLATELET 104 x1000/uL (130-400); RED BLOOD CELL COUNT 4.13 mill/uL (4.2-5.4); RED CELL DISTRIBUTION WIDTH 14.7 % (11.6-14.6)
[2019-05-16] MEDS ORDERED: LOSARTAN POTASSIUM 50 MG TABLET PO SCH (09:00)
[2019-05-16] MEDS: CARVEDILOL 3.125 MG TABLET PO SCH (10:07)
[2019-05-16] MEDS: INSULIN GLARGINE UD 100 UNITS/ML SYR SUBCUT SCH (10:09)
[2019-05-16 10:16] LABS: CHLORIDE 103 mEq/L (98-107)
[2019-05-16] MEDS ORDERED: CARVEDILOL 6.25 MG TABLET PO SCH (12:00)
== END 2019-05-16 17:12 | disposition home or self-care (01) | DRG 245 ==
LOC: 3WST 12:54
PROVIDERS: ADMIT Internal Medicine Clinical Cardiac Electrophysiology; ATTEND Internal Medicine Clinical Cardiac Electrophysiology
PROC: B517YZZ Fluoroscopy of Left Subclavian Vein using Other Contrast (ICD-10-PCS; principal; 2019-05-15)
PROC: 0JH608Z Insertion of Defibrillator Generator into Chest Subcutaneous Tissue and Fascia, Open Approach (ICD-10-PCS; 2019-05-15)
PROC: 02PA3MZ Removal of Cardiac Lead from Heart, Percutaneous Approach (ICD-10-PCS; 2019-05-15)
PROC: 0JPT0PZ Removal of Cardiac Rhythm Related Device from Trunk Subcutaneous Tissue and Fascia, Open Approach (ICD-10-PCS; 2019-05-15)
PROC: 02HK3JZ Insertion of Pacemaker Lead into Right Ventricle, Percutaneous Approach (ICD-10-PCS; 2019-05-15)
DX: T82.110A Breakdown (mechanical) of cardiac electrode, initial encounter (principal); I42.9 Cardiomyopathy, unspecified; M48.56XA Collapsed vertebra, not elsewhere classified, lumbar region, initial encounter for fracture; I44.2 Atrioventricular block, complete; I48.92 Unspecified atrial flutter; Y71.2 Prosthetic and other implants, materials and accessory cardiovascular devices associated with adverse incidents; E11.65 Type 2 diabetes mellitus with hyperglycemia; I65.21 Occlusion and stenosis of right carotid artery; H81.10 Benign paroxysmal vertigo, unspecified ear; I25.10 Atherosclerotic heart disease of native coronary artery without angina pectoris; E87.6 Hypokalemia; D69.6 Thrombocytopenia, unspecified; E78.5 Hyperlipidemia, unspecified; I10 Essential (primary) hypertension; I48.91 Unspecified atrial fibrillation; K21.9 Gastro-esophageal reflux disease without esophagitis; M17.0 Bilateral primary osteoarthritis of knee; N28.1 Cyst of kidney, acquired; Z82.49 Family history of ischemic heart disease and other diseases of the circulatory system; Z86.73 Personal history of transient ischemic attack (TIA), and cerebral infarction without residual deficits; Z91.14 Patient's other noncompliance with medication regimen; Z92.21 Personal history of antineoplastic chemotherapy; Z85.72 Personal history of non-Hodgkin lymphomas; Z90.49 Acquired absence of other specified parts of digestive tract; Y92.89 Other specified places as the place of occurrence of the external cause
CPT/HCPCS: 36415; 71045; 80048; 80053; 81003; 82533; 82962; 83036; 84443; 85025; 93005; 93970; J0330; J0360; J0690; J1580; J1815; J2060; J2250; J2704; J3490; Q9967